=== PATIENT | female | born 1950 | race Caucasian/White ===

== ENCOUNTER 2017-05-08 22:30 | Emergency (ER) | payer BC, MEDICARE ==
[~2017-05-08] VITALS: Ht 170.2 cm; Wt 111.6 kg
[~2017-05-08 22:30] MED LIST: ALBU90OI INH; ALBU90OI61 INH; ALLO100 PO; ALPR.5 PO; AMLO10 PO; ASCO500 PO; ASPI325 PO; ASPI81EC PO; ATOR10 PO; BUME2 PO; Bactrim Ds Tab1 EACH PO; CARV25 PO; CIPR500 PO; CLIN300 PO; DOCU100 PO; DOXY100 PO; EXFORGE; FAMO20 PO; FISH1000 PO; FURO40 PO; FURO80 PO; FUROSEMIDE 20 MG; GABA100 PO; GABA300 PO; GLIM2; GOUT MED; HYDACE10B PO; HYDACE5 PO; HYDR1TAB94 PO; Humalog100 UNIT/3 SQ; IFEREX PO; INSDET100 SUBQ; INSLI100I SC; INSLI100I SUBQ; INSULANI SC; LAVAP17G PO; LEVFLO500 PO; LEVOFLOXACIN500 MG PO; LOVA20 PO; MELO7.5; METO2.5 PO; METO25 PO; METO50ER PO; METR500 PO; MULVITMINF PO; NEBI5 PO; Norco 5-325 Ta1 EACH PO; Novolog Fl100 UNIT/1 SQ; PIOG15; POTCHL10ER PO; Prozac20 MG PO; TOCO1000 PO; TRAM50 PO; XARELTO20 MG PO; [UNRECOGNIZED DRUG - OTHER]; [UNRECOGNIZED DRUG - REMARK]; [UNRECOGNIZED DRUG - REMARK]
[2017-05-08 23:01] LABS: BASOPHILS PERCENT AUTO 1 % (0-2); EOSINOPHILS ABSOLUTE AUTO 1.12 K/mm3 (0.00-0.68); EOSINOPHILS PERCENT AUTO 9 % (0-6); Hematocrit 42.1 % (33.0-51.0); Hemoglobin 13.8 g/dL (11.5-16.0); IMMATURE GRAN ABSOLUTE AUTO 0.04 K/mm3 (0.00-0.10); IMMATURE GRAN PERCENT AUTO 0 % (0-1); LYMPHOCYTES ABSOLUTE AUTO 3.64 K/mm3 (0.84-5.20); LYMPHOCYTES PERCENT AUTO 30 % (21-46); MONOCYTES ABSOLUTE AUTO 1.28 K/mm3 (0.16-1.47); MONOCYTES PERCENT AUTO 11 % (4-13); Mean Corpuscular HGB 30.5 pg (26.0-34.0); Mean Corpuscular HGB Conc 32.8 g/dL (31.5-36.5); Mean Corpuscular Volume 93 fL (80-100); Mean Platelet Volume 9.8 fL (9.1-12.4); NEUTROPHILS ABSOLUTE AUTO 5.94 K/mm3 (1.96-9.15); NEUTROPHILS PERCENT AUTO 49 % (41-73); Platelet Count 284 K/mm3 (150-400); RDW Coefficient Variation 11.9 % (11.7-14.2); RDW Standard Deviation 40.8 fL (35.1-46.3); Red Blood Cell Count 4.53 M/mm3 (3.80-5.20); White Blood Cell Count 12.12 K/mm3 (4.00-11.30)
[2017-05-08 23:20] LABS: Alanine Aminotransfer (ALT/SGP 20 U/L (12-78); Albumin, Blood 3.1 g/dL (3.4-5.0); Albumin/Globulin Ratio 0.7 (0.8-1.8); Alk Phos 65 U/L (50-136); Anion Gap 7 mmol/L (6-16); Aspartate Aminotrans (AST/SGOT 17 U/L (12-37); Bilirubin, Total 0.2 mg/dL (0.1-1.0); Blood Urea Nitrogen 52 mg/dL (8-24); Bun/Creatinine Ratio 31.9 (12.0-20.0); CO2, Blood 28 mmol/L (21-32); Calcium, Blood 8.5 mg/dL (8.5-10.1); Chloride, Blood 103 mmol/L (98-108); Creatinine, Blood 1.63 mg/dL (0.40-1.00); Globulin, Blood 4.5 g/dL (2.2-4.0); Glomerular Filtration Rate 33 (60-); Glucose, Blood 167 mg/dL (70-99); Potassium, Blood 4.4 mmol/L (3.5-5.5); Sodium, Blood 138 mmol/L (136-145); Total Protein, Blood 7.6 g/dL (6.4-8.2); Troponin I <0.015 ng/mL (0.000-0.040)
[2017-05-09 01:53] LABS: Source, Urine Clean Catch
[2017-05-09 01:55] LABS: Bilirubin, Urine Neg (Neg); Blood, Urine 1+ (Neg); Glucose Qualitative, Urine Neg (Neg); Ketones, Urine Neg (Neg); Leukocyte Esterase, Urine 1+ (Neg); Nitrite, Urine Neg (Neg); Protein, Urine 4+ (Neg); Specific Gravity, Urine 1.015 (1.003-1.022); Urobilinogen, Urine NORM (Normal)
[2017-05-09 02:02] LABS: Appearance, Urine Clear (Clear); Color, Urine Yellow (P-Yellow)
[2017-05-09 02:03] LABS: Bacteria Rare /hpf; Red Blood Cells, Urine Rare /hpf (0-2); Squamous Epithelial Cells Few /hpf (Few)
[2017-12-12] MEDS ORDERED: ELIQUIS5 MG PO (10:52)
[2017-12-12] MEDS ORDERED: Norvasc5 MG PO (10:52)
[2017-12-12] MEDS ORDERED: Zofran4 MG PO (10:52)
[2017-12-12] MEDS ORDERED: NYSTATIN1 EAC1 TOP (17:27)
[2017-12-13] MEDS ORDERED: ELIQUIS5 MG PO (10:28)
[2017-12-14] MEDS ORDERED: INSDET100 SC (19:11)
[2017-12-14] MEDS ORDERED: Humalog100 UNIT/1 SC (19:13)
[2018-01-01] MEDS ORDERED: INSR10I SC (14:21)
[2018-01-01] MEDS ORDERED: ACET325 PO (14:21)
[2018-01-01] MEDS ORDERED: ALPR.5 PO (14:22)
[2018-01-01] MEDS ORDERED: FLONASE ALLERG9.9 ML (14:23)
[2018-01-01] MEDS ORDERED: BISA10S PR (14:23)
[2018-01-01] MEDS ORDERED: HYDRA25 PO (14:26)
[2018-01-01] MEDS ORDERED: ACIDOPHILUS LA1 EACH PO (14:27)
[2018-01-01] MEDS ORDERED: ALBU3IS NEB (14:29)
[2018-01-01] MEDS ORDERED: PRED20 PO (14:30)
[2018-01-01] MEDS ORDERED: METO2.5 PO (14:30)
[2018-01-01] MEDS ORDERED: Nystatin15 GM TOP (14:31)
[2018-01-01] MEDS ORDERED: Neosporin + P28.3 GM TOP (14:32)
[2018-01-01] MEDS ORDERED: ONDA4ODT PO (14:33)
[2018-01-01] MEDS ORDERED: PANT20 PO (14:33)
[2018-01-01] MEDS ORDERED: POLYOX WSR-3011 GM PO (14:34)
== END 2017-05-09 04:02 | disposition home or self-care (01) ==
LOC: ER 22:30
PROVIDERS: Emergency Medicine
DX: I10 Essential (primary) hypertension (principal); R10.9 Unspecified abdominal pain; E10.9 Type 1 diabetes mellitus without complications; Z88.8 Allergy status to other drugs, medicaments and biological substances; Z88.5 Allergy status to narcotic agent; Z79.4 Long term (current) use of insulin; Z79.82 Long term (current) use of aspirin; Z79.899 Other long term (current) drug therapy; Z87.891 Personal history of nicotine dependence
CPT/HCPCS: 36415; 71046; 80053; 81001; 83880; 84484; 85025; 87086; 93005; 93010; 99283